=== PATIENT | female | born 1945 | race Two or more races ===

== ENCOUNTER 2022-11-08 14:51 | Emergency (ER) | payer OTHER ==
[~2022-11-08] VITALS: Ht 172.7 cm; Wt 83.9 kg
[2022-11-08] MEDS ORDERED: TOPROL XL100 M1 (15:17)
== END 2022-11-08 18:30 | disposition home or self-care (01) ==
LOC: ER 14:51
DX: S13.9XXA Sprain of joints and ligaments of unspecified parts of neck, initial encounter (principal); M25.519 Pain in unspecified shoulder; W07.XXXA Fall from chair, initial encounter; Y93.9 Activity, unspecified; Y99.9 Unspecified external cause status; Y92.59 Other trade areas as the place of occurrence of the external cause